=== PATIENT | male | born 1945 | race Hispanic/Latino ===

== ENCOUNTER 2017-05-24 09:01 | Day surgery (SDC) | payer OTHER ==
[2017-05-24 09:24] VITALS: BMI 29.7
[2017-05-24] MEDS ORDERED: Lactated Ringer's 500 ML IV ONE (09:37)
[2017-05-24] MEDS ORDERED: Propofol 10 mg/ml Inj (20 ML) ONE (09:57)
[2017-05-24] MEDS ORDERED: Lidocaine 2% MPF (5 ml) Inj ONE (09:58)
[2017-05-24 10:25] VITALS: BP 120/71; PULSE 63; RESP 13; TEMP 96.8; O2SAT 96
== END 2017-05-24 11:00 | disposition home or self-care (01) ==
LOC: H.ENDO 09:01
PROVIDERS: ATTEND Internal Medicine Gastroenterology
DX: Z13.810 Encounter for screening for upper gastrointestinal disorder (principal); E78.5 Hyperlipidemia, unspecified; F41.9 Anxiety disorder, unspecified; I10 Essential (primary) hypertension; M81.0 Age-related osteoporosis without current pathological fracture; K22.9 Disease of esophagus, unspecified; K29.70 Gastritis, unspecified, without bleeding; K44.9 Diaphragmatic hernia without obstruction or gangrene
CPT/HCPCS: 43239; 88305; J2704; J7120